=== PATIENT | female | born 1980 | race Caucasian/White ===

== ENCOUNTER 2017-02-14 14:30 | Emergency (ER) | payer MEDICAID, OTHER ==
[~2017-02-14] VITALS: Ht 160 cm; Wt 52.0 kg
[2017-02-14 14:32] VITALS: Ht 160 cm; Wt 52.0 kg
[2017-02-14] MEDS ORDERED: ONDANSETRON 4 MG INJ IV STA (15:26)
[2017-02-14] MEDS ORDERED: SOD CHLORIDE 0.9% 1,000 ML IV STA (15:26)
[2017-02-14] MEDS ORDERED: FAMOTIDINE 20 MG INJ IV STA (15:26)
[2017-02-14 16:13] LABS: ADD SCAN DIFF NO
[2017-02-14 16:16] LABS: BASOPHILS % 0.5 % (0.0-2.0); EOSINOPHILS % 0.4 % (0.0-7.0); HEMATOCRIT 37.4 % (37.0-47.0); HEMOGLOBIN 12.3 g/dl (12.0-16.0); LYMPHOCYTES # 0.9 10^3/ul (0.8-2.9); LYMPHOCYTES % 10.9 % (15.0-51.0); MEAN CORPUSCULAR HEMOGLOBIN 31.4 pg (29.0-33.0); MEAN CORPUSCULAR HGB CONC 32.9 g/dl (32.0-37.0); MEAN CORPUSCULAR VOLUME 95.4 fl (82.0-101.0); MEAN PLATELET VOLUME 9.9 fl (7.4-10.4); MONOCYTE # 0.3 10^3/ul (0.3-0.9); NEUTROPHIL # 6.6 10^3/ul (1.6-7.5); NEUTROPHILS % 83.9 % (39.0-77.0); PLATELET COUNT 290 10^3/UL (140-415); RED BLOOD COUNT 3.92 10^6/ul (4.20-5.40); RED CELL DISTRIBUTION WIDTH 12.4 % (11.5-14.5); WHITE BLOOD COUNT 7.9 10^3/ul (4.8-10.8)
[2017-02-14 16:23] LABS: ADD UMIC YES; URINE BILIRUBIN (Dip) NEGATIVE (NEGATIVE); URINE BLOOD (Dip) 1+ (NEGATIVE); URINE COLOR LT. YELLOW (YELLOW); URINE GLUCOSE (Dip) NEGATIVE (NEGATIVE); URINE KETONES (Dip) TRACE (NEGATIVE); URINE LEUKOCYTE ESTERASE (Dip) NEGATIVE (NEGATIVE); URINE NITRITE (Dip) NEGATIVE (NEGATIVE); URINE TOTAL PROTEIN (Dip) NEGATIVE (NEGATIVE); URINE UROBILINOGEN (Dip) 0.2 E.U./dL (0.1-1.0)
[2017-02-14 16:32] LABS: ALBUMIN 4.9 g/dl (3.3-4.9); POTASSIUM 3.7 mmol/L (3.5-5.1)
[2017-02-14 16:34] LABS: CREATININE 0.68 mg/dl (0.44-1.00)
[2017-02-14 16:35] LABS: ALBUMIN/GLOBULIN RATIO 1.25; BILIRUBIN,INDIRECT 0.5 mg/dl (0-1.1); BILIRUBIN,TOTAL 0.5 mg/dl (0.2-1.3); TOTAL PROTEIN 8.8 g/dl (6.1-8.1)
[2017-02-14 16:36] LABS: CALCIUM 9.2 mg/dl (8.4-10.2)
[2017-02-14 16:36] LABS: SQUAMOUS EPITHELIAL CELL,UR MODERATE; URINE RBCS 0-2 /HPF (0)
--- NOTE | 2017-02-14 17:13 | ERD ---
ER Documentation Chief Complaint Date/Time DATE: 02/14/17 TIME: 17:11 Chief Complaint abdominal pain this morning HPI This is a 36-year-old female who presents to the emergency room for evaluation of abdominal pain. The patient localizes the pain to lower portion of abdomen states it has been present for approximately 5 hours duration. The patient denies any vomiting associated with this but states that she is mildly nauseous. She also states that she has had increased urination over the past 3 days. She denies any fevers or chills associated with her she does state she has had tubal ligation and denies any vaginal bleeding or vaginal discharge ROS All systems reviewed and are negative except as per history of present illness. PMhx/Soc Medical and Surgical Hx: Unable to obtain Hx Alcohol Use: No Hx Substance Use: No Hx Tobacco Use: No Smoking Status: Never smoker Physical Exam Vitals Vital Signs Date Time Temp Pulse Resp B/P Pulse Ox O2 Delivery O2 Flow Rate FiO2 02/14/17 14:32 98.9 88 18 119/66 97 Physical Exam INITIAL VITAL SIGNS: Reviewed by me GENERAL: The patient is well developed and appropriate for usual state of health in no apparent distress HEENT: Pupils equal, round, and reactive to light. EOMI. There is no scleral icterus. NECK: C-spine is soft and supple, there is no meningismus. There is no cervical lymphadenopathy. LUNGS: Clear to auscultation bilaterally. There are no rales, wheezes or rhonchi. HEART: Regular rate and rhythm, no murmurs, clicks, rubs or gallops. ABDOMEN: Suprapubic tenderness to palpation, otherwise soft, non-tender, non- distended. There are bowel sounds in all four quadrants. No rebound or guarding. EXTREMITIES: There is no peripheral cyanosis or edema. No focal swelling or erythema. NEUROLOGICAL: The patient moves all four extremities with 5/5 strength. Cranial nerves II - XII are intact. Normal gait. Alert and oriented SKIN: There is no apparent rash or petechiae. HEME/LYMPHATIC: There is no evidence of excessive bruising or lymphedema. PSYCHIATRIC: The patient does not appear anxious or depressed. Result Diagram: 02/14/17 1555 02/14/17 1556 Results 24 hrs Laboratory Tests Test 02/14/17 15:41 02/14/17 15:48 02/14/17 15:55 Urine Color LT. YELLOW Urine Clarity CLEAR Urine pH 5.5 Urine Specific [place] 1.025 Urine Ketones TRACE Urine Nitrite NEGATIVE Urine Bilirubin NEGATIVE Urine Urobilinogen 0.2 E.U./dL Urine Leukocyte Esterase NEGATIVE Urine Microscopic RBC 0-2/HPF Urine Microscopic WBC 0-2/HPF Urine Squamous Epithelial Cells MODERATE Urine Hemoglobin 1+ Urine Glucose NEGATIVE% Urine Total Protein NEGATIVE Urine Test NEGATIVE White Blood Count 7.910^3/ul Red Blood Count 3.9210^6/ul Hemoglobin 12.3g/dl Hematocrit 37.4% Mean Corpuscular Volume 95.4fl Mean Corpuscular Hemoglobin 31.4pg Mean Corpuscular Hemoglobin Concent 32.9g/dl Red Cell Distribution Width 12.4% Platelet Count 50376^3/UL Mean Platelet Volume 9.9fl Neutrophils % 83.9% Lymphocytes % 10.9% Monocytes % 4.0% Eosinophils % 0.4% Basophils % 0.5% Nucleated Red Blood Cells % 0.0/100WBC Neutrophils # 6.610^3/ul Lymphocytes # 0.910^3/ul Monocytes # 0.310^3/ul Eosinophils # 0.010^3/ul Basophils # 0.010^3/ul Nucleated Red Blood Cells # 0.010^3/ul Sodium Level 140mmol/L Potassium Level 3.7mmol/L Chloride Level 104mmol/L Carbon Dioxide Level 25mmol/L Anion Gap 15 Blood Urea Nitrogen 15mg/dl Creatinine 0.68mg/dl Glucose Level 89mg/dl Calcium Level 9.2mg/dl Total Bilirubin 0.5mg/dl Direct Bilirubin 0.00mg/dl Indirect Bilirubin 0.5mg/dl Aspartate Amino Transf (AST/SGOT) 28IU/L Alanine Aminotransferase (ALT/SGPT) 18IU/L Alkaline Phosphatase 86IU/L Total Protein 8.8g/dl Albumin 4.9g/dl Globulin 3.90g/dl Albumin/Globulin Ratio 1.25 Lipase 69U/L Current Medications Medications (Trade) Dose Ordered Sig/David Route PRN Reason Start Time Stop Time Status Last Admin Dose Admin Sodium Chloride (NS) 1,000 ml @ 1,000 mls/hr Q1H STAT IV 02/14/17 15:26 02/14/17 16:25 DC 5/24/17 16:12 Ondansetron HCl (Zofran Inj) 4 mg ONCE STAT IV 02/14/17 15:26 02/14/17 15:27 DC 02/14/17 16:12 Famotidine (Pepcid Iv) 20 mg ONCE STAT IV 02/14/17 15:26 02/14/17 15:27 DC 02/14/17 16:12 Procedures/MDM This 36-year-old female presents to the emergency room for evaluation of abdominal pain. When I evaluated her she did have some suprapubic tenderness to palpation. Lab work was obtained including a urinalysis. Urinalysis is within normal limits, lab work is also within normal limits. The patient does say she has a urinary frequency. I advised her sometimes on the urinalysis bacteria will not show however I will show up on the urine culture. Urine culture was obtained. The patient will be discharged home with a prescription for ciprofloxacin over the course of next 3 days for urinary frequency and abdominal pain. Differential diagnoses entertained was broad with potential high acuity. Patient has been evaluated for appendicitis, cholecystitis, and other high risk medical and surgical causes of abdominal pain. Ultimately the patient's evaluation is nondiagnostic. Based on the patient's lack of risk factors, as well as the patient's clinical, laboratory, and imaging data, the patient appears to be low risk for these high risk causes of abdominal pain. Departure Diagnosis: Primary Impression: Abdominal pain Additional Impression: Urinary frequency Condition: Stable LINDYJAZLYN MASTTIFFANIE ROBERTS February 14, 2017 17:13
[2017-02-14] MEDS ORDERED: CIPR500T4 PO (17:14)
[2017-02-14] MEDS ORDERED: CIPROFLOXACIN 500 MG TAB PO ONE (17:30)
== END 2017-02-14 17:37 | disposition home or self-care (01) ==
LOC: FTE 14:30
DX: R10.30 Lower abdominal pain, unspecified (principal); R35.0 Frequency of micturition; R11.0 Nausea
CPT/HCPCS: 80053; 81001; 83690; 84703; 85025; 87086; 96374; 96375; J2405; J7030; Z7502; Z7610